=== PATIENT | female | born 1985 | race Caucasian/White ===

== ENCOUNTER 2019-09-01 15:21 | Emergency (ER) | payer OTHER, SELFPAY ==
--- NOTE | ~2019-09-01 | US_ITS ---
EXAMINATION: US OB <=14 wk fetus w TV EXAM DATE: 09/01/2019 17:29 INDICATION: Right abdominal pain, nausea. 1st trimester. TECHNIQUE: Pelvic obstetrical transabdominal sonogram was performed by a technologist. There are mu ltiple grayscale and Doppler images available for interpretation. There are no earlier studies of th is gestation for comparison. FINDINGS: Uterus measures 8.2 x 5.3 x 4.3 cm. There is intrauterine gestation sac. The 1.2 cm mean sac diameter corresponds to estimated gestational age by ultrasound of 5 weeks 6 days, estimated date of confinement 04/27/2020. Yolk sac is identified. There is no pole identified at this time. Small hypoechoic subchorionic region probably hematoma measuring 10 cm diameter by 2 mm in thickness. The right ovary is morphologically normal with Doppler flow confirmed. Left ovary is not identified . IMPRESSION: 1. Early intrauterine gestation sac, age by ultrasound 5 weeks 6 days. No pole identified to co nfirm viability at this time. Consider 1-2 week follow-up ultrasound. 2. Small subchorionic hematoma. Reviewed, dictated and finalized at location A. IMPRESSION: 1. Early intrauterine gestation sac, age by ultrasound 5 weeks 6 days. No pole identified to confirm viability at this time. Consider 1-2 week follow-up ultrasound. 2. Small subchorionic hematoma.
[2019-09-01 15:52] VITALS: BP 94/61; PULSE 98; RESP 22; TEMP 36.7; O2SAT 98
[2019-09-01 16:08] LABS: Basophils Percent Auto 0.3 % (0.2-1.2); Eosinophils Absolute Auto 0.1 K/mm3 (0-0.3); Eosinophils Percent Auto 0.4 % (0-4.4); Hematocrit 37.7 % (37.0-47.0); Hemoglobin 12.4 g/dL (12.0-15.0); Immature Granulocyte Absolute 0.03 K/mm3 (0.00-0.031); Immature Granulocyte Percent A 0.3 % (0-0.5); Lymphocytes Absolute Auto 2.31 K/mm3 (0.9-3.2); Lymphocytes Percent Auto 20.2 % (18.3-44.2); Mean Corpuscular HGB Conc 32.9 g/dl (32-36); Mean Corpuscular Hemoglobin 28.1 pg (26-34); Mean Corpuscular Volume 85.5 fl (80-100); Mean Platelet Volume 9.9 fl (7.4-10.4); Monocytes Percent Auto 8.6 % (2.6-8.5); Neutrophils Absolute Auto 8.1 K/mm3 (1.3-6.7); Neutrophils Percent Auto 70.2 % (45.5-73.1); Platelet Count Result 268 k/mm3 (150-375); Red Blood Count 4.41 M/mm3 (4.2-5.4); Red Cell Distribution Width 12.6 % (11.5-14.5); White Blood Count 11.5 K/mm3 (4.5-10.0)
[2019-09-01 16:12] LABS: Add Urine Microscopic? YES; Appearance Urine Clear (Clear); Bilirubin Urine Negative (Negative); Blood Urine Negative (Negative); Color Urine Yellow (Yellow); Glucose Urine UA Negative (Negative); Ketones Urine Negative (Negative); Leukocyte Esterase Ur Negative LEU/UL (Negative); Mucus Urine Heavy /lpf; Nitrate Urine Negative (Negative); Protein Urine 1+ mg/dL (Negative); RBC Urine 0-2 /hpf (0-2); Specific Grav Ur 1.029 (1.001-1.035); Squamous Epithelial Cell Urine Few /hpf (Few)
[2019-09-01 16:18] LABS: Chloride 101 mmol/L (98-107)
[2019-09-01 16:40] LABS: Alanine Aminotransferase 40 U/L (4-35); Albumin Level 3.8 g/dL (3.5-5.1); Alkaline Phosphatase 61 U/L (38-126); Aspartate Amino Transferase 23 U/L (14-36); Bilirubin,Total 0.5 mg/dL (0.2-1.3); Blood Urea Nitrogen 11 mg/dL (7-17); Carbon Dioxide 30 mmol/L (22-30); Estimated CRCL calculation 100 ml/min; Estimated Glomerular Filt Rate > 60; Glucose 109 mg/dL (65-105); Lipase 38 U/L (23-300); Potassium 3.9 mmol/L (3.4-5.0); Sodium 137 mmol/L (137-145)
[2019-09-01] MEDS: LACTATED RINGERS 1,000 ML 999 ML IV CONT (17:04)
--- NOTE | 2019-09-01 17:04 | PC.NURSE ---
Pt to U/S via stretcher.
[2019-09-01 17:12] LABS: Creatine Kinase 23 U/L (30-135)
[2019-09-01 17:26] LABS: Amphetamine Screen Urine Positive (Negative); Barbiturate Screen Urine Negative (Negative); Benzodiazepines Screen Urine Negative (Negative); Cannabinoid Screen Urine Negative (Negative); Cocaine Screen Urine Negative (Negative); Methadone Screen Urine Negative (Negative); Opiate Screen Urine Negative (Negative); Phencyclidine Screen Urine Negative (Negative)
[2019-09-01 17:50] VITALS: BP 111/59; PULSE 81; RESP 17; O2SAT 100
--- NOTE | 2019-09-01 18:24 | ED.ABDPAIN ---
HPI - Abdominal Pain General Chief Complaint: Abdominal Pain Stated Complaint: ABD PAIN, NAUSEA Time Seen by Provider: 09/01/19 15:30 Source: patient and old records reviewed Mode of arrival: ambulatory Limitations: no limitations History of Present Illness HPI narrative: 33-year-old female Complains of right-sided back and abdominal pain for several days Her last menstrual period was in June and she believes herself to be about 8 to 10 weeks Has not had any confirmation at her office visit yet during this Pain started gradually and has gotten somewhat worse She does not have a fever but she does have some nausea and vomiting, no diarrhea There is no spotting or vaginal discharge A day and a half earlier she was evaluated and treated in the emergency department at [facility]. She is under the impression that they did nothing before diagnosing her with a UTI however it appears from the records that we obtained that she had a fairly comprehensive lab work-up which indeed does seem to be consistent with a urinary tract infection, and in fact her urine culture is growing E. coli. Additionally she had ABO typing done and is A positive Related Data Allergies Allergy/AdvReac Type Severity Reaction Status Date / Time No Known Allergies Allergy Verified 09/01/19 15:59 [facility] Family History Family History (Updated 11/04/13 @ 07:13 by DOCTOR UNKNOWN) Grandparent Hypertension Mother Hypertension Other Family history of seizure disorder Social History Social History Smoking status: Never smoker Second hand tobacco smoke exposure: No Smoking end date: 03/10/13 Alcohol intake: never Gender identity (if verbalized by the patient): Female Course Course Emergency Course: discussewd findings with patient and sig other unsure what abx she is currently taking Vital Signs Vital signs: Vital Signs Temperature 36.7 C 09/01/19 15:52 Pulse Rate 98 09/01/19 15:52 Respiratory Rate 22 H 09/01/19 15:52 Blood Pressure 94/61 L 09/01/19 15:52 Pulse Oximetry 98 09/01/19 15:52 Temperature 36.7 C 09/01/19 15:52 Pulse Rate 81 09/01/19 17:50 Respiratory Rate 17 09/01/19 17:50 Blood Pressure 111/59 L 09/01/19 17:50 Pulse Oximetry 100 09/01/19 17:50 MDM - Abdominal Pain Lab Data Result diagrams: 09/01/19 16:00 09/01/19 16:01 Labs: Lab Results 09/01/19 09/01/19 09/01/19 Range/Units 16:00 16:00 16:00 WBC 11.5 H (4.5-10.0) K/mm3 RBC 4.41 (4.2-5.4) M/mm3 Hgb 12.4 (12.0-15.0) g/dL Hct 37.7 (37.0-47.0) % MCV 85.5 (80-100) fl MCH 28.1 (26-34) pg MCHC 32.9 (32-36) g/dl RDW 12.6 (11.5-14.5) % Plt Count 268 (150-375) k/mm3 MPV 9.9 (7.4-10.4) fl Immature Gran % (Auto) 0.3 (0-0.5) % Neut % (Auto) 70.2 (45.5-73.1) % Lymph % (Auto) 20.2 (18.3-44.2) % [place] % (Auto) 8.6 H (2.6-8.5) % Eos % (Auto) 0.4 (0-4.4) % Baso % (Auto) 0.3 (0.2-1.2) % Lymph # (Auto) 2.31 (0.9-3.2) K/mm3 [place] # (Auto) 1.0 H (0.1-0.6) K/mm3 Eos # (Auto) 0.1 (0-0.3) K/mm3 Baso # (Auto) 0.0 (0.0-0.1) K/mm3 Abs Immat Gran (auto) 0.03 (0.00-0.031) K/mm3 Absolute Neuts (auto) 8.1 H (1.3-6.7) K/mm3 Absolute Nucleated RBC 0.0 (0.0-0.012) K/mm3 Nucleated RBC % 0.0 (0.0-0.2) % Sodium (137-145) mmol/L Potassium (3.4-5.0) mmol/L Chloride (98-107) mmol/L Carbon Dioxide (22-30) mmol/L BUN (7-17) mg/dL Creatinine (0.7-1.0) mg/dL Estim Creat Clear Calc ml/min Estimated GFR (59 - ) Glucose (65-105) mg/dL Calcium (8.4-10.2) mg/dL Total Bilirubin (0.2-1.3) mg/dL AST (14-36) U/L ALT (4-35) U/L Alkaline Phosphatase (38-126) U/L Total Creatine Kinase 23 L (30-135) U/L Total Protein (6.3-8.2) g/dL Albumin (3.5-5.1) g/dL Lipase (23-300) U/L Beta HCG, Quant mI
[2019-09-01 18:56] VITALS: BP 124/75; PULSE 82; RESP 18; O2SAT 98
== END 2019-09-01 18:57 | disposition home or self-care (01) ==
PROVIDERS: Emergency Provider Emergency Medicine
DX: O23.01 Infections of kidney in pregnancy, first trimester (principal); Z3A.01 Less than 8 weeks gestation of pregnancy
CPT/HCPCS: 36415; 76801; 76817; 80053; 80307; 81001; 81025; 82550; 83690; 84702; 85025; 96360; 99284; J7120

== ENCOUNTER 2019-10-05 14:38 | Outpatient (CLI) | payer OTHER, SELFPAY ==
--- NOTE | ~2019-10-05 | US_ITS ---
EXAMINATION: US OB <= 14 weeks fetus DATE: 10/05/2019 15:19 INDICATION: Gestational dating TECHNIQUE: Real-time transabdominal and transvaginal obstetric ultrasound. FINDINGS: Ultrasound dated 09/01/2019 The uterus measures 11.2 x 6 x 7.1 cm. There is an intrauterine gestational sac, with pole iden tified. The crown rump length measures 3.09 cm, which correlates with a estimated gestational age of 10 weeks 0 days. heart tones are identified measuring 165 bpm. Ovaries not visualized. IMPRESSION: 1. SL IUP with an EGA of 10 weeks, 5 days (EDC by initial ultrasound of 04/27/2020). Appropriate inter petra growth. Reviewed, dictated and finalized at location A. IMPRESSION: 1. SL IUP with an EGA of 10 weeks, 5 days (EDC by initial ultrasound of 04/27/19 21). Appropriate interval growth.
--- NOTE | 2019-12-23 15:47 | ED_ITS ---
HPI - Female Genitourinary Related Data Home Medications Medication Instructions Recorded Confirmed aspirin 81 mg tablet,delayed 81 mg PO DAILY 11/29/19 11/29/19 release buprenorphine HCl 8 mg sublingual 8 mg SUBLINGUAL TID tablet 11/29/19 11/29/19 tablet Allergies Allergy/AdvReac Type Severity Reaction Status Date / Time No Known Allergies Allergy Verified 11/29/19 11:13 Review of Systems Constitutional: Constitutional: Reports no additional constitutional complaints ENT: Denies dizziness Cardiovascular: Cardiovascular: Denies chest pain Respiratory: Respiratory: Denies cough Gastrointestinal: Gastrointestinal: Reports no additional gastrointestinal co mplaints Genitourinary: Genitourinary: Reports as per HPI Musculoskeletal: Musculoskeletal: Denies arthralgias and Denies joint swelling Neurologic: Denies focal weakness and Denies numbness [facility] Past Medical History Medical History (Updated 11/30/19 @ 04:06 by Tad Ross MD) Chronic hypertension affecting Hepatitis C History of substance abuse Vaginal delivery x2 Family History Family History Grandparent Hypertension Mother Hypertension Other Family history of seizure disorder Social History Social History (Updated 11/30/19 @ 03:58 by Tad Ross MD) Smoking status: Former smoker Second hand tobacco smoke exposure: No Smoking end date: 03/10/13 Alcohol intake: never Substance use: former Substance use type: heroin and methamphetamine Gender identity (if verbalized by the patient): Female Exam Const: General: alert Orientation/consciousness: patient oriented x3 Resp: Effort & Inspection: normal respiratory effort Auscultation: clear to auscultation bilaterally Cardio: Rate: regular rate Rhythm: regular rhythm GI: GI Palp: Yes Soft to palpation and No Tenderness to palpation present (GI) : Speculum Exam - Vagina: vaginal bleeding Bimanual exam- vagina & uterus: no cervical motion tenderness Bimanual Exam- Adnexa, other: adnexal mass Discharge Plan Discharge Patient Disposition: Home, Self-Care Discharge Medications: No Action PNV 119-iron fum-folic acid 29 mg iron- 1 mg tablet 1 tablet PO DAILY Qty: 90 RF: 3 aspirin 81 mg tablet,delayed release (DR/EC) 81 mg PO DAILY RF: 0 buprenorphine HCl 8 mg tablet, sublingual 8 mg SUBLINGUAL TID RF: 0
== END 2019-10-05 14:39 | disposition home or self-care (01) ==
PROVIDERS: PCP Nurse Practitioner Family; Visit Provider Obstetrics & Gynecology
DX: Z34.91 Encounter for supervision of normal pregnancy, unspecified, first trimester (principal); Z3A.10 10 weeks gestation of pregnancy
CPT/HCPCS: 76801

== ENCOUNTER 2021-01-14 20:37 | Emergency (ER) | payer OTHER, SELFPAY ==
--- NOTE | ~2021-01-14 | CT_ITS ---
EXAMINATION: CT diagnostic chest w con DATE: 01/15/2021 00:03 INDICATION: Right breast pain TECHNIQUE: Transaxial computed tomographic images of the chest were obtained after the administration of 75 cc of Omnipaque 350 intravenous contrast. The dose-length product (DLP) was 296.86 mGy-cm. Ite rative reconstruction was used. COMPARISON: None FINDINGS: The lungs are free of acute opacities. There is no pleural effusion or pneumothorax. The he art size is normal. There is mild right axillary lymphadenopathy. The visualized osseous structures a re unremarkable. The mildly enlarged common bile duct measures 3 mm. IMPRESSION: 1. No CT correlate for the patient's symptoms. 2. Mild right axillary lymphadenopathy, likely reactive. 3. Mild enlargement of the common bile duct of unclear significance. Recommend correlation with liver function tests. Reviewed, dictated and finalized at location B. [facility]
[2021-01-14 20:43] VITALS: BP 138/88; PULSE 97; RESP 18; TEMP 36.7; O2SAT 97
[2021-01-14 23:33] LABS: Basophils Percent Auto 0.4 % (0.2-1.2); Eosinophils Absolute Auto 0.2 K/mm3 (0-0.3); Eosinophils Percent Auto 1.6 % (0-4.4); Hematocrit 36.8 % (37.0-47.0); Hemoglobin 11.3 g/dL (12.0-15.0); Immature Granulocyte Absolute 0.03 K/mm3 (0.00-0.031); Immature Granulocyte Percent A 0.3 % (0-0.5); Lymphocytes Absolute Auto 2.39 K/mm3 (0.9-3.2); Lymphocytes Percent Auto 22.3 % (18.3-44.2); Mean Corpuscular HGB Conc 30.7 g/dl (32-36); Mean Corpuscular Hemoglobin 25.5 pg (26-34); Mean Corpuscular Volume 82.9 fl (80-100); Mean Platelet Volume 9.4 fl (7.4-10.4); Monocytes Absolute Auto 0.7 K/mm3 (0.1-0.6); Monocytes Percent Auto 6.7 % (2.6-8.5); Neutrophils Absolute Auto 7.4 K/mm3 (1.3-6.7); Neutrophils Percent Auto 68.7 % (45.5-73.1); Platelet Count Result 291 k/mm3 (150-375); Red Blood Count 4.44 M/mm3 (4.2-5.4); Red Cell Distribution Width 14.6 % (11.5-14.5); White Blood Count 10.7 K/mm3 (4.5-10.0)
[2021-01-14 23:45] LABS: Anion Gap 7 mmol/L (8-16); Blood Urea Nitrogen 14 mg/dL (7-17); Carbon Dioxide 32 mmol/L (22-30); Chloride 100 mmol/L (98-107); Estimated CRCL calculation 75 ml/min; Estimated Glomerular Filt Rate > 60; Glucose 114 mg/dL (65-110); Potassium 3.9 mmol/L (3.4-5.0); Sodium 139 mmol/L (137-145)
--- NOTE | 2021-01-15 01:08 | ED.GENADULT ---
HPI - General Adult General Chief complaint: Unspecified Stated complaint: Arm/Chest injury Time Seen by Provider: 01/14/21 23:08 Source: RN notes reviewed History of Present Illness HPI narrative: Patient presents emergency department from home for right breast pain. Patient states 4 days ago she has been able to keep her child when she bumped her right breast on the corner of a cabinet. States that starting 3 days ago she began to have increased pain and swelling in the right breast states that the breast is tender palpation has had some redness to the breast she denies any other trauma or injury she denies any fevers or chills shortness of breath or any other symptoms Review of Systems Review of Systems: Gen.: Denies fevers or chills Eyes: Denies eye pain or visual change ENT: Denies congestion Respiratory: Denies shortness of breath or cough CV: Denies palpitations GI: Denies abdominal pain nausea, emesis Musculoskeletal: Denies back pain or muscle pain Neuro: Denies numbness, tingling, weakness or focal weakness Skin: See HPI Except as documented, all other systems reviewed and negative [facility] Past Medical History Medical History (Updated 01/15/21 @ 01:38 by Sonny Post DO) Hypertension Social History Social History (Updated 01/15/21 @ 01:35 by Sonny Post DO) Smoking status: Never smoker Exam Narrative: APPEARANCE: No acute distress, nontoxic, resting in bed EYES: EOMI HEENT: Normocephalic, atraumatic, OMM RESPIRATORY: No respiratory distress Clear to auscultation bilaterally with no rhonchi wheezing or rales. CARDIOVASCULAR: Regular rate and rhythm without murmurs rubs or gallops. Chest: Left breast is normal appearance the right breast is tender to palpation there is mild swelling and erythema over the medial breast that extends to the nipple there appears to be minimal transfer the nipple but no drainage ABDOMINAL: Soft, nontender, nondistended, no rebound or guarding MUSCULOSKELETAl: Moves all extremities. NEURO: Awake and alert. Following commands, speech normal, no focal deficits SKIN:: Warm, dry. No rashes lesions or abrasions PSYCHIATRIC: Normal affect/mood, Course Course Emergency Course: : Discussed with Dr. Brasher for general surgery presentation work-up at this time recommends discharge with Keflex and will follow the patient in the office suspect likely hematoma but if signs of abscess can drain in office Discussed with patient results of workup and diagnosis. Discussed need for follow-up with primary care, proper use of medication, and reasons to return to the emergency department. Patient understands and agrees to current treatment plan Vital Signs Vital signs: Vital Signs Temperature 98.0 F 01/14/21 20:43 Pulse Rate 97 01/14/21 20:43 Respiratory Rate 18 01/14/21 20:43 Blood Pressure 138/88 01/14/21 20:43 Pulse Oximetry 97 01/14/21 20:43 Temperature 98.0 F 01/14/21 20:43 Pulse Rate 97 01/14/21 20:43 Respiratory Rate 18 01/14/21 20:43 Blood Pressure 138/88 01/14/21 20:43 Pulse Oximetry 97 01/14/21 20:43 Medical Decision Making MDM Narrative Medical decision making narrative: Patient with contusion the right breast pain and swelling for the past 3 days the area is warm and tender question ecchymosis versus early abscess discussed with general surgery will start on antibiotics with follow-up in the office Vital Signs Vital Signs: Vital Signs Temperature 98.0 F 01/14/21 20:43 Pulse Rate 97 01/14/21 20:43 Respiratory Rate 18 01/14/21 20:43 Blood Pressure 138/88 01/14/21 20:43 Pulse Oximetry 97 01/14/21 20:43 Temperature 98.0 F 01/14/21 20:43 Pulse Rate 97 01/14/21 20:43 Respiratory Rate 18 01/14/21 20:43 Blood Pressure 138/88 01/14/21 20:43 Pulse Oximetry 97 01/14/21 20:43 Lab Data Result diagrams: 01/14/21 23:25 01/14/21 23:25 Labs: Lab Results 01/14/21 01/14/21 Range/U
[2021-01-15] MEDS: CEPHALEXIN 500 MG CAPSULE PO (01:22)
[2021-01-15 01:46] VITALS: BP 129/71; PULSE 62; RESP 18; O2SAT 100
== END 2021-01-15 01:47 | disposition home or self-care (01) ==
PROVIDERS: Emergency Provider Emergency Medicine; PCP Nurse Practitioner Family
DX: S20.01XA Contusion of right breast, initial encounter (principal); I10 Essential (primary) hypertension; W22.09XA Striking against other stationary object, initial encounter
CPT/HCPCS: 36415; 71260; 80048; 81025; 85025; 99284; A9270; Q9967

== ENCOUNTER 2021-01-17 03:04 | Day surgery (SDC) | payer OTHER, SELFPAY ==
[2021-01-16 15:18] VITALS: BMI 33.0
--- NOTE | 2021-01-16 15:31 | PC.NURSE ---
Report to the Outpatient Waiting Room, entrance under the green pavilion located off [facility], at time 12:15 on date 01/17/21. OR Time: 2:30. - You and your visitor will be asked a series of questions to screen for COVID 19 for your protection. - A mask is required within the hospital. - Only one visitor is allowed at this time. Patient visitors will be guided where to wait when not with patient. Preoperative COVID Testing Requirements: RAPID COVID TEST 01/17 AT 1215 No COVID Test needed if: (proof is required; if not received patient will have Rapid Test prior to entry) - Patient has received COVID Vaccine at least 14 days prior to procedure date or - Patient has positive COVID test result within last 90 days of surgery date. COVID Test needed if above criteria is not met If not COVID vaccinated a COVID test must be conducted within 72 hours of surgery and patient is asked to isolate self from time of testing until procedure. You will go to the [facility] for your COVID testing. The [facility] is located at the corner of [address] [facility]. You will only be called if COVID results are positive and your surgeon may reschedule your elective surgery date. Patients may have clear liquids (water, carbonated beverages, clear teas, apple juice) until 3 hours prior to surgery with a maximum of 20 ounces. - No food from midnight until time of surgery - Infants may have breast milk until 4 hours before surgery, infant formula 6 hours prior to surgery. - Children will be allowed to drink immediately following surgery. If applicable, please bring a bottle or sippy cup to assist with drinking. Juice, water, soda, and popsicles are readily available. For infants on formula, please bring formula the day of surgery. Pacifiers are allowed. Take the following medications with a SIP of water the morning of surgery: ANTIBIOTIC Medications to discontinue per physician: IBUPROFEN Date to take last dose: PER DR. BARAHONA Please no make-up, nail telugu, hairspray, perfume, deodorant, or body powder the day of surgery. No jewelry (including any body piercings) or valuables the day of surgery, leave them at home. Please take a shower or bath the night before, or the morning of, surgery with an antibacterial soap. Wear comfortable, loose fitting clothing. Children are encouraged to wear pajamas. - Jewelry must be removed prior to entering the operating room. Rings and piercings that are not removed may be cut off. - The hospital will not accept responsibility for valuables. - Please leave all valuables, including medications, at home the day of surgery. If you are going home after surgery, a licensed team cdl driver must drive you home. - NO public transportation without another adult. - We recommend that an adult stay with you for 24 hours following discharge. - We also recommend that you do not drive, make important decision, drink alcoholic beverages, or take any drugs that were not prescribed by your health care provider for at least 24 hours after your discharge time. For Pediatric surgeries, we recommend two adults accompany the child home (only one inside the building at this time). Follow any additional instructions given to you from your surgeon. Telephone instructions given to MARTIR DRAKE and asked if any additional questions and then verbalized understanding. Patient advised to call surgeon office or pre surgery nurse liaison [phone] if any additional questions.
[2021-01-17] VITALS (11 sets, daily range): BP systolic 106–122; BP diastolic 54–93; PULSE 71–92; RESP 14–20; TEMP 36.2; O2SAT 94–100
--- NOTE | 2021-01-17 11:46 | WPDHPUPDATE1 ---
History and Physical Update Update Date/Time: 01/17/21 11:46 History and Physical has been reviewed, including an updated exam of the patient. There are NO changes in the patient's condition. Risks, benefits, and alternatives have been discussed and questions answered. Patient agrees to proceed with procedure.
--- NOTE | 2021-01-17 12:04 | P.PNAN_ITS ---
Anes - Initial Pre Proc Eval Procedure: Operation Date: 01/17/21 12:00 Proposed Procedures p Complex Incision and Drainage Right Breast Abscess - Camilla Brasher MD Date/Time: 01/17/21 12:04 Surgeon: Camilla Brasher MD Pre Op Diagnosis: right breast abscess Patient Data Age: 35 Gender: F Height: 1.55 m Weight: 79.38 kg Allergies Allergy/AdvReac Type Severity Reaction Status Date / Time No Known Allergies Allergy Verified 01/16/21 15:17 Home Medications Medication Instructions Recorded Confirmed Type cephalexin 500 mg PO Q8H 10 Days #30 cap 01/15/21 01/17/21 Rx ibuprofen [IBU] 600 mg PO Q6H PRN #20 tablet 01/15/21 01/17/21 Rx Patient hx anesthesia problems: none Family hx anesthesia problems: none Results Review: All pre-operative results and documents have been reviewed as part of the pre-operative evaluation. [facility] Past Medical History Medical History Chronic hypertension affecting Hepatitis C History of substance abuse Hypertension Vaginal delivery x2 Surgical History Surgical History H/O knee surgery H/O sinus surgery Family History Family History Grandparent Hypertension Mother Hypertension Other Family history of seizure disorder Social History Social History Social History: drinks 2 sodas/day Smoking packs per day: 0.5 Smoking cigarettes per day: 10.0 Years smoked: 17 Smoking pack-years: 8.50 Smoking status: Current every day smoker Tobacco type: cigarettes Second hand tobacco smoke exposure: No Smoking end date: 03/10/13 Alcohol intake: former Alcohol use details: QUIT 10 YRS AGO - DAILY DRINKING AT THAT TIME Substance use: current Substance use type: marijuana, crack/cocaine, heroin, painkillers, methamphetamine and other Other substance usage details: MARIJUANA SMOKE, METH, FENTANYL Last use: 01/15/21 Gender identity (if verbalized by the patient): Female Spiritual care concerns: No Anes - Eval Final PreProcedure Day of Procedure 01/17/21 12:04 Patient weight: obese Heart: regular rate and rhythm Lungs: clear to auscultation Airway: Mallampati scale class II Neurological: alert and oriented Last oral intake: >/= 8 hours ASA classification: III Emergent: no Anesthetic plan: proceed Anesthesia type and monitoring: general LMA and standard monitoring Results Review: All pre-operative results and documents have been reviewed as part of the pre-operative evaluation. Informed Consent: The patient's anesthetic plan and its attendant risks and benefits were discussed with the patient/family/POA. Questions were solicited and answers provided to the satisfaction of the patient/family/POA.
[2021-01-17] MEDS: ceFAZolin 2 GM/D5W 50 ML 2 GM/50 ML BAG IVPB (12:45)
[2021-01-17] MEDS: LACTATED RINGERS 1,000 ML 30 ML IV CONT (13:03)
--- NOTE | 2021-01-17 13:10 | W.PM.PROC2 ---
Procedure Note - Detailed Date of Procedure 01/17/21 Pre-op Diagnosis right breast abscess, subareolar abscess Post-op Diagnosis same Procedure Performed Complex incision and drainage right breast subareolar abscess measuring approximately 5 x 4 cm Surgeon Camilla Brasher MD Anesthesia general Indications 35-year-old female with right breast subareolar abscess over the last few days, worsening despite antibiotics Findings 5 x 4 cm right breast subareolar abscess with copious amounts of purulent drainage Description of Procedure The patient was taken to the operating room and placed in the supine position. After adequate induction of general anesthesia, the patient was prepped and draped in the normal sterile fashion. Time-out was then done to verify the patient's identity, as well as the procedure being performed. I began by making a infra areolar incision, this incision was carried down through the dermis into the subcutaneous/breast tissue. Was able to locate the abscess cavity which was noted to be at the level of the nipple areolar complex. I then incised the cavity and a copious amount of purulent drainage was noted. No culture was taken given her previous antibiotic usage. I then used a hemostat to bluntly dissect around this cavity. Once the entire cavity was completely drained, it measured approximately 5 x 4 cm. I then copiously irrigated this cavity. I then packed this cavity with 1 in iodoform packing, this was done to keep the area open and draining. Sterile dressing was then placed. Patient tolerated the procedure well, and was extubated in the operating room. She will be sent to the recovery in stable condition. Estimated Blood Loss 5 Drains No Packing Yes Pathology none sent Complications No immediate complications Condition stable Disposition PACU
[2021-01-17] MEDS: fentaNYL CITRATE INJ (*CRX) 100 MCG/2 ML VIAL 25 MCG IV PUSH ×8 (13:19→13:40)
[2021-01-17] MEDS: HYDROmorphone HCL INJ (*CRX) 1 MG/ML SYR 0.5 MG IV PUSH ×8 (13:40→14:19)
[2021-01-17] MEDS: oxyCODONE HCL (*CRX) 5 MG TAB IR PO (14:58)
== END 2021-01-17 15:29 | disposition home or self-care (01) ==
PROVIDERS: PCP Nurse Practitioner Family; Visit Provider Surgery
PROC: (CPT 10061; principal; 2021-01-17 12:00)
DX: N61.1 Abscess of the breast and nipple (principal); F17.210 Nicotine dependence, cigarettes, uncomplicated; F15.90 Other stimulant use, unspecified, uncomplicated; F12.90 Cannabis use, unspecified, uncomplicated; F11.90 Opioid use, unspecified, uncomplicated; E66.9 Obesity, unspecified; Z68.37 Body mass index [BMI] 37.0-37.9, adult
CPT/HCPCS: 10061; 87426; A9270; C9803; J0131; J0690; J1170; J2250; J2405; J2704; J3010; J7120

== ENCOUNTER 2021-01-17 10:38 | Outpatient (CLI) | payer OTHER, SELFPAY ==
[2021-01-17 11:26] LABS: EDCOVIDSCREEN Negative (Negative)
== END 2021-01-17 10:39 | disposition home or self-care (01) ==
LOC: ANHSURGERY 10:42
PROVIDERS: PCP Nurse Practitioner Family; Visit Provider Surgery
DX: Z01.812 Encounter for preprocedural laboratory examination (principal); Z20.822 Contact with and (suspected) exposure to COVID-19
CPT/HCPCS: 87426; C9803

== ENCOUNTER 2023-03-13 12:50 | Outpatient (CLI) | payer OTHER, SELFPAY ==
--- NOTE | ~2023-03-13 | US_ITS ---
EXAMINATION: US OB follow up DATE: 03/13/2023 13:48 INDICATION: First trimester if inconclusive viability TECHNIQUE: Real-time ultrasound of the pelvis was performed. The interpreting radiologist was not pre sent for the study. COMPARISON: None. FINDINGS: There is a single living fetus in breech presentation. The placenta is anterior. card iac activity and movement are noted. heart rate is 151 beats per minute (bpm). The amniot ic fluid index is subjectively normal. The following biometric data were obtained: Biparietal diameter (BPD): 2.9 cm; head circumference (HC): 10.9 cm; abdominal circumference (AC): 9. 1 cm; femur length (FL): 1.4 cm. These measurements are concordant. Estimated weight is 107 g +/- 16 g, which correlates with the 82nd percentile when 09/10/2023 is used as estimated date of delivery. As single measurements, these parameters are each equal to the following estimated gestational ages w ith ranges of +/- 2 standard deviations: BPD: 15 weeks 2 days +/- 1 weeks 1 days. HC: 15 weeks 2 days +/- 1 weeks 1 days. AC: 15 weeks 2 days +/- 1 weeks 5 days. FL: 14 weeks 2 days +/- 1 weeks 3 days. estimated gestational age based solely on measurements from this exam is 15 weeks 0 days +/- 1 weeks 0 days. IMPRESSION: 1. Single living fetus in breech presentation. 2. Estimated weight is 107 g +/- 16 g, which correlates with the 82nd percentile when 09/10/2023 is used as estimated date of delivery. Reviewed, dictated and finalized at location A. [facility]ER IMPRESSION: 1. Single living fetus in breech presentation. 2. Estimated weight is 107 g +/- 16 g, which correlates with the 82nd per centile when 09/10/2023 is used as estimated date of delivery.
== END 2023-03-13 12:51 | disposition home or self-care (01) ==
LOC: ANHIMG 12:52
PROVIDERS: PCP Nurse Practitioner Family; Visit Provider Registered Nurse
DX: O36.80X0 Pregnancy with inconclusive fetal viability, not applicable or unspecified (principal); Z3A.15 15 weeks gestation of pregnancy
CPT/HCPCS: 76816